=== PATIENT | female | born 1945 | race Caucasian/White ===

== ENCOUNTER → 2018-09-26 | Outpatient (CLI) | payer MEDICARE ==
[~2018-09-26] MED LIST: CATHETER FLUSH 10 ML SYR IV PRN
--- NOTE | 2018-09-26 12:50 | STRESS TEST ---
DATE OF SERVICE: 09/26/2018 EXERCISE MYOVIEW STRESS TEST REFERRING PHYSICIAN: Ralph Anguiano DO Baseline heart rate is 64. Baseline blood pressure 148/71. Baseline EKG is sinus rhythm with no ischemic changes. In summary, the patient was injected with 10.2 mCi of technetium-99 Myoview and the resting images were obtained. Then, the patient started exercising with a baseline heart rate, blood pressure and EKG mentioned above. The patient was able to exercise for 4 minutes and 15 seconds on standard Antony protocol. With peak exercise level, EKG was showing minimal nondiagnostic changes. During recovery, heart rate and blood pressure returned to baseline. EKG returned to baseline. The resting and stress images were reviewed and compared in the short axis, horizontal long axis, and vertical long axis views. Review of the images showed breast attenuation with decreased uptake involving the anterior wall and anterolateral wall with stress score of 8, SDS 5. Transient ischemic dilatation, probably due to the left ventricular size with TID value 2.08. On the gated images, the left ventricle is small with good contractility. Calculated ejection fraction 87%. CONCLUSION: 1. Fair exercise tolerance, a total of 4 minutes 15 seconds on standard Antony protocol, total of 6 METS achieving 91% of maximum expected heart rate. 2. Appropriate heart rate and blood pressure response to exercise, returned to baseline during recovery. 3. Nondiagnostic EKG changes with exercise, returned to baseline during recovery. 4. Breast attenuation with questionable ischemia involving the anterior wall and anterolateral wall. 5. Transient ischemic dilatation with TID value of 2.08. It could be secondary to the small left ventricular size. 6. Normal contractility with calculated ejection fraction 87%. Job ID: [id number] DocumentID: [id number] Dictated Date: 09/26/2018 12:10:04 [employer] Date: 09/26/2018 12:48:48 Dictated By: LORENA ANDERSON MD
== END ==
LOC: CARD 07:04
PROVIDERS: ATTEND Physician Assistant
DX: E78.2 Mixed hyperlipidemia (principal); I34.0 Nonrheumatic mitral (valve) insufficiency; I11.9 Hypertensive heart disease without heart failure
CPT/HCPCS: 78452; 93017; 93306

== ENCOUNTER 2018-10-05 06:30 | Day surgery (SDC) | payer MEDICARE ==
[2018-10-05] VITALS (11 sets, daily range): BP systolic 125–151; BP diastolic 72–81
[~2018-10-05] VITALS: Ht 154.9 cm; Wt 75.3 kg
[2018-10-05] MEDS ORDERED: LIDOCAINE 1% INJ 20 ML 20 ML VIAL ONE (06:39)
[2018-10-05] MEDS ORDERED: HEParin (CATH LAB) 2,000 ML IV ONE (06:40)
[2018-10-05] MEDS ORDERED: NS IV 1000 ML 1,000 ML ONE (06:40)
[2018-10-05] MEDS ORDERED: NS IV 1000 ML 1,000 ML IV SCH ×2 (07:45→12:33)
--- NOTE | 2018-10-05 08:13 | Diagnostic Imaging Report ---
INDICATION: Coronary artery disease Frontal chest obtained at 7:54 a.m. Heart is borderline in size. Mediastinal silhouette is unremarkable. The lungs show no focal infiltrate. There is no pneumothorax or pleural fluid. There is some mild linear scarring or atelectasis in the left base. IMPRESSION: Borderline cardiomegaly with no focal infiltrate or edema. Minimal linear scarring versus atelectasis in the left lateral base. Dictated by: Dictated on workstation # [id number]
[2018-10-05] MEDS ORDERED: AMLO10TA7 PO (08:15)
[2018-10-05] MEDS ORDERED: METO-387 PO (08:15)
[2018-10-05] MEDS ORDERED: LOSA100T57 PO (08:15)
[2018-10-05] MEDS ORDERED: ATOR40TA PO (08:15)
[2018-10-05] MEDS ORDERED: TIMO5DRO5 OS (08:18)
[2018-10-05] MEDS ORDERED: DENO60DI SQ (08:18)
[2018-10-05] MEDS ORDERED: CHOL400C9 PO (08:18)
--- NOTE | 2018-10-05 08:20 | NUR ---
SPOKE WITH PT WELL GOING THRU HER BOTTLES (AND MED LIST IN HER CHART) TO COMPLETE THE MED REC. SHE WAS ABLE TO TELL HER ALL HER MEDICATIONS AND HOW SHE TAKES ALL HER MEDICATIONS. OTC MEDS: VITAMIN D3 400UNITS: 5 CAPS PER DAY
[2018-10-05 08:31] LABS: BILIRUBIN,URINE NEGATIVE (NEGATIVE); CLARITY,URINE CLEAR; COLOR,URINE YELLOW; GLUCOSE, URINE (UA) NEGATIVE (NEGATIVE); HEMOGLOBIN 12.2 G/DL (11.5-16.0); KETONES,URINE NEGATIVE (NEGATIVE); LEUKOCYTE ESTERASE ,URINE 2+ (NEGATIVE); MEAN PLATELET VOLUME 11.4 FL (7.4-10.4); NITRITE,URINE NEGATIVE (NEGATIVE); PH,URINE 6 (5-9); PROTEIN,URINE NEGATIVE (NEGATIVE); RED CELL DISTRIBUTION WIDTH 15.1 % (10.0-14.5); UROBILINOGEN,URINE NORMAL (NORMAL); WHITE BLOOD COUNT 5.6 10^3/uL (4.3-11.0)
[2018-10-05 08:39] LABS: BACTERIA,URINE NEGATIVE /HPF
[2018-10-05 08:42] LABS: INR 1.1 (0.8-1.4); PROTHROMBIN TIME PATIENT 14.2 SEC (12.2-14.7)
[2018-10-05 08:49] LABS: ALBUMIN 4.2 GM/DL (3.2-4.5); BILIRUBIN,TOTAL 0.5 MG/DL (0.1-1.0); CALCIUM 9.6 MG/DL (8.5-10.1); CREATININE SERUM 0.99 MG/DL (0.60-1.30); POTASSIUM 3.4 MMOL/L (3.6-5.0); TOTAL PROTEIN 7.5 GM/DL (6.4-8.2)
[2018-10-05] MEDS ORDERED: MIDAZOLAM 5 MG/5 ML (VERSED) VIAL ONE (11:46)
[2018-10-05] MEDS ORDERED: fentaNYL INJECTION 100 MCG/2 ML AMP ONE (11:46)
--- NOTE | 2018-10-05 12:33 | Cardiac Procedure Note-CS/ASA ---
Pre-Procedure Note Pre-Op Procedure Note H&P Reviewed The H&P was reviewed, patient examined and no changes noted. Date H&P Reviewed: Oct 05, 2018 Time H&P Reviewed: 11:00 Conscious Sedation Pre-Proced Time 11:00 ASA Score 3 For ASA 3 and 4: Consider anesthesia and medical clearance. Also, for patients with a history of failed moderate sedation consider anesthesia. Airway Lungs Heart ASA score ASA 1: a normal healthy patient ASA 2: a patient with a mild systemic disease (mid diabetes, controlled hypertension, obesity X ASA 3: a patient with a severe systemic disease that limits activity (angina, COPD, prior Myocardial infarction) ASA 4: a patient with an incapacitating disease that is a constant threat to life (CHF, renal failure) ASA 5: a moribund patient not expected to survive 24 hrs. (ruptured aneurysm) ASA 6: a declared brain- patient whose organs are being harvested. For emergent operations, add the letter E after the classification Mallampati Classification Grade 3 Sedation Plan Analgesia, Amnesia, Plan communicated to team members, Discussed options with patient/fam, Discussed risks with patient/fam The patient is an appropriate candidate to undergo the planned procedure, sedation, and anesthesia. The patient immediately re-assessed prior to indication. LORENA ANDERSON MD Oct 05, 2018 12:33
--- NOTE | 2018-10-05 12:36 | Discharge Inst-Post CATH ---
Discharge Inst-CATH/EP Problems Reviewed?: Yes Post Cardiac Cath/EP D/C Inst Follow Up/Plan Appointment with Dr. Davis's office in 2-4 weeks <b>CARDIAC CATH/EP PROCEDURE DISCHARGE INSTRUCTIONS</b> ACTIVITY * Go Home directly and rest. * Limit activity of the leg (or wrist if it was used) for 7 days including aerobics, swimming, jogging, bicycling, etc. * Restrict stair-climbing for 7 days if possible, if not, climb up with your non-cath leg, then bring together on the same step. * Avoid lifting, pushing, pulling or excessive movement of the affected extremity for 7 days. * Customary sexual activity may be resumed after 2 days-use caution not to use a position that strains or causes pain to the affected extremity. * No driving for 24 hours. * NO SMOKING. * Avoid straining for bowel movements for 7 days. * Gentle walking on level ground is allowed. * Returning to work will depend on the type of procedure and the results. Your doctor will discuss this with you. CALL YOUR DOCTOR FOR ANY OF THE FOLLOWING: *If bleeding from the puncture site occurs- Apply gentle pressure to site with clean cloth and call your doctor or EMS. * If a knot or lump forms under the skin, increases in size, or causes pain. * If bruising appears to be worsening or moving further down your leg instead of disappearing. * Temperature above 101 F. CARE OF YOUR GROIN INCISION; * Bruising or purple discoloration of the skin near the puncture site is common. * You may shower only, no bathtub bathing for 5 days. Be careful to avoid slipping as your leg may feel stiff. * If a closure device was used on your femoral artery, please see the attached guide regarding care of the device and your leg. * Leave dressing on FOR 24 hours. CARE OF YOUR WRIST INCISION; * Bruising or purple discoloration of the skin near the puncture site is common. * You may shower. * DO NOT submerge wrist. * Leave dressing on FOR 24 hours. LORENA DAVIS MD Oct 05, 2018 12:36
--- NOTE | 2018-10-05 12:41 | Cardiac Cath Report ---
Cardiac Cath Report Physician (s)/Tree Inspector (s) Physician LORENA ANDERSON MD Pre-Procedure Diagnosis Pre-Procedure Diagnosis: coronary artery disease Post-Procedure Note Procedure Start Date: Oct 05, 2018 Procedure Start Time: 12:36 Name of Procedure: Left heart catheterization Selective bilateral renal angiogram Findings/Procedure Note PROCEDURE NOTE: 73-year-old lady with history of resistant hypertension, recurrent chest pain, had an abnormal stress test scheduled for cardiac catheterization and bilateral renal angiogram to evaluate for renal artery stenosis as an underlying cause for her resistant hypertension. After explaining the procedure to the patient, all pros and cons were explained, all questions were answered. The patient signed the consent and then she was placed on the cardiac catheterization laboratory. Groin was prepped SL fashion local anesthesia was used. Sheath placed in the right femoral artery. Kyle right and left catheter were used to access the coronary system. Kyle right catheter was used to cross over to the left ventricular cavity, pressure was measured, pullback LV to aorta was done then the catheter was pulled down to the right renal artery selective angiographic to the right renal artery was done then intubated the superior mesenteric artery and angiogram was done then intubated the left renal artery and left renal angina gram was done. At the end of the procedure the sheath was removed. Closure device was deployed FINDINGS: Hemodynamics LV 127/13, end-diastolic pressure of 13 Aorta 133/61 mean of 67 ANATOMY: Left Main is free of obstructive disease Left Anterior Descending had mild diffuse ectasia with multiple segment of 40-50 percent stenosis nonobstructive disease Left Circumflex has mild diffuse ectasia with multiple segment of 40-50 percent stenosis at the midportion nonobstructive disease Right Coronory Artery is nondominant artery with mild disease LV Gram was not done, pressure was measured Selective right renal angiogram showed normal renal artery with no obstructive disease Selective left renal angiogram showed normal left renal artery with no obstruct montrell disease Selective superior mesenteric artery angiogram showed normal SMA with no obstructive disease CONCLUSION: 1. Mild coronary ectasia with 40-50 percent stenosis in the mid LAD and circumflex artery with no significant obstructive disease 2. Normal left ventricular end-diastolic pressure 3. Normal bilateral renal arteries DISCUSSION AND RECOMMENDATION: medical therapy is recommended no intervention is needed Anesthesia Type: Conscious Sedation Estimated blood loss (mL): 25 ml Contrast Amount: 60 ml Total Radiation Dose: 259 mGy Post-Procedure Diagnosis Post-operative diagnosis: Chest pain Coronary artery disease Resistant hypertension Hyperlipidemia LORENA ANDERSON MD Oct 05, 2018 12:41
[2018-10-05] MEDS ORDERED: PATIENT MAY USE OWN MEDS, ALL PO SCH (12:45)
== END 2018-10-05 17:05 | disposition home or self-care (01) ==
LOC: CATH 06:30 → SDC 12:49 → CATH 17:05
PROVIDERS: ATTEND Internal Medicine Cardiovascular Disease
DX: I25.10 Atherosclerotic heart disease of native coronary artery without angina pectoris (principal); R07.9 Chest pain, unspecified; I11.9 Hypertensive heart disease without heart failure; E78.2 Mixed hyperlipidemia; I08.3 Combined rheumatic disorders of mitral, aortic and tricuspid valves; R60.9 Edema, unspecified; I65.23 Occlusion and stenosis of bilateral carotid arteries; Z82.49 Family history of ischemic heart disease and other diseases of the circulatory system; Z79.899 Other long term (current) drug therapy
CPT/HCPCS: 36415; 71045; 80053; 80061; 81000; 85027; 85610; 85730; 87081; 93458